=== PATIENT | female | born 1965 | race Hispanic/Latino ===

== ENCOUNTER 2021-04-11 00:42 | Emergency (ER) | payer OTHER ==
--- OUTSIDE RECORDS SUMMARY | 2021-04-11 00:47 | XMS REPORT | Continuity of Care Document ---
:1965 Author Organization [facility] t Address [address] [place] [address] Care Team Providers Name Role Phone Emigdio HERNANDEZ, [facility] Primary Care Physician Payers Payer Name Policy Type Policy Number Effective Date Expiration Date S ource Problems Condition Condition Condition Status Onset Resolution Last Treating Co mments Source Name Details Category Date Date Treatment Clinician Date Gingivitis Gingivitis Disease Active 2011-09 H arris 10-15 Health 00:00: 00 Dental Dental Disease Active Jarquin decay decay 06-15 Health 00:00: 00 Allergies, Adverse Reactions, Alerts Allergy Allergy Status Severity Reaction(s) Onset Inactive Treating Comm ents Source Name Type Date Date Clinician adhesive DA Active [facility] tape 06-03 Clear 00:00: Trtoter [address] [place] [address] Family History Family Member Diagnosis Comments Start Date Stop Date Source Natural sister Cancer Britton Taylor [facility] Social History Social Habit Start Date Stop Date Quantity Comments Source Tobacco use and 2019-02-22 2019-02-22 Never used Britton Blevins [facility] exposure 00:00:00 00:00:00 Alcohol intake 2019-02-22 2019-02-22 Current Britton Taylor [facility] 00:00:00 00:00:00 non-drinker of alcohol (finding) History [facility] Food 2017-08-20 2017-08-20 1 [facility] Worry 00:00:00 00:00:00 History [facility] Food 2017-08-20 2017-08-20 1 [facility] Scarcity 00:00:00 00:00:00 Sex [birth year] [facility] 00:00:00 00:00:00 Smoking Status Start Date Stop Date Source Never smoker [facility] Medications Ordered Filled Start Stop Current Ordering Indication Dosage Frequency Signature Comments Components Source Medication Medication Date Date Medication? Clinician (SIG) Name Name traMADol Yes Pain, 50mg Take 1 Jarquin (ULTRAM) 50 5-04 dental tablet by H ealth mg tablet 00:00: mouth 00 every 6 hours as needed for Pain. hydroxychlo 2016-09 Yes 200mg QD Take 200 H arris roquine 2-11 mg by Health (PLAQUENIL) 13:56: mouth 200 mg 39 daily. tablet hydroxychlo 2016-09 Yes 200mg QD Take 200 H arris roquine 2-11 mg by Health (PLAQUENIL) 13:56: mouth 200 mg 39 daily. tablet topiramate 2016-09 Yes 50mg Q.5D Take 50 mg H arris (TOPAMAX) 2-11 by mouth 2 Heal th 50 mg 13:56: times tablet 39 daily. Diclofenac 2016-09 Yes Apply to Bruno ris Sodium 2-11 affected Health (VOLTAREN) 13:56: area. 1 % Gel 39 Procedures This patient has no known procedures. Plan of Care Planned Activity Planned Date Details Comments Source Future Scheduled 2021-06-20 IMM Influenza Seasonal H arris Health Test 00:00:00 Jun to November (>/= 19 yrs) [code = IMM Influenza Seasonal Jun to November (>/= 19 yrs)] Future Scheduled 2021-04-20 INFLUENZA VACCINE [place] [facility] 00:00:00 [code = INFLUENZA VACCINE] Future Scheduled 2015 COLONOSCOPY SCREENING [place] [facility] 00:00:00 [code = COLONOSCOPY SCREENING] Future Scheduled 2015 SHINGLES VACCINES (#1) [place] [facility] 00:00:00 [code = SHINGLES VACCINES (#1)] Future Scheduled 2015 BREAST CANCER [facility]ist Test 00:00:00 SCREENING [code = BREAST CANCER SCREENING] Future Scheduled 2015 Screening for Jarquin Hea lth Test 00:00:00 malignant neoplasm of colon (procedure) [code = 091724000] Future Scheduled 2005 Breast Cancer Scrn [facility] s Health Test 00:00:00 (Yearly) [code = Breast Cancer Scrn (Yearly)] Future Scheduled 1995 Screening for Jarquin [facility] Test 00:00:00 malignant neoplasm of cervix (procedure) [code = 889129383] Future Scheduled 1995 Screening for Britton Blevinsa lth Test 00:00:00 malignant neoplasm of cervix (procedure) [code = 013919178] Future Scheduled 1986 Screening for [facility] Test 00:00:00 malignant neoplasm of cervix (procedure) [code = 387058202] Future Scheduled 1983 Hepatitis C screening [place] [facility] 00:00:00 (procedure) [code = 094471859] Future Scheduled 1977 COVID-19 VACCINE (1) [facility] 00:00:00 [code = COVID-19 VACCINE (1)] Future Scheduled 1977 COVID-19 Vaccine (1) [facility] Test 00:00:00 [code = COVID-19 Vaccine (1)] Future Scheduled 1975 DIABETES: RETINAL EYE [place] [facility] 00:00:00 EXAM [code = DIABETES: RETINAL EYE EXAM] Future Scheduled 1975 DIABETIC FOOT EXAM [place] [facility] 00:00:00 [code = DIABETIC FOOT EXAM] Future Scheduled 1975 URINE MICROALBUMIN [place] [facility] 00:00:00 [code = URINE MICROALBUMIN] Encounters Start End Encounter Admission Attending Care Care Encounter Source Date/Time Date/Time Type Type Clinicians Facility Department ID 2018-10-10 2018-10-10 Outpatient [facility] [id number] eClinic 16:17:00 16:17:00 Hypertens Hypertensio alWorks ion n [facility] Clinic at at [facility] 2018-10-10 2018-10-10 Outpatient Clear Ashkum [id number] eClinic 16:03:00 16:03:00 [facility] 2018-10-06 2018-10-06 Outpatient Clear [facility] [id number] eClinic 13:04:00 13:04:00 [facility] 2018-10-06 2018-10-06 Outpatient Endocrino Endocrinolo 1 [id number] eClinic 09:02:00 09:02:00 logy gy Clinic alWo rks [facility] 2018-10-06 2018-10-06 Outpatient Clear Ashkum [id number] eClinic 08:00:00 08:00:00 [facility] Primary alWork s Primary Care - Care - [facility] Office Office 2018-07-27 2018-07-27 Outpatient Clear Ashkum [id number] eClinic 08:15:00 08:15:00 [facility] Primary alWork s [facility] 2018-06-30 2018-06-30 Outpatient Clear Ashkum [id number] eClinic 09:28:00 09:28:00 [facility] Primary alWork s Primary Care - Care [facility] Office Office 2018-05-20 2018-05-20 Outpatient [facility] - Clear [id number] eClinic 08:30:00 08:30:00 [facility] alWork s [facility] Clinic 2018-05-09 2018-05-09 Outpatient Clear Ashkum [id number] eClinic 10:45:00 10:45:00 [facility] Primary alWork s [facility] 2018-04-07 2018-04-07 Outpatient Clear Ashkum [id number] eClinic 09:35:00 09:35:00 [facility] Primary alWork s Primary Care - Care - [facility] Office Office 2018-04-04 2018-04-04 Outpatient Clear Ashkum [id number] eClinic 10:15:00 10:15:00 [facility] Primary alWork s Primary Care - Care - [facility] Office Office 2018-03-18 2018-03-18 Outpatient [facility] [id number] Jarquin 10:33:51 10:33:51 Health 2018-02-07 2018-02-07 Outpatient [facility] [id number] [place] 09:37:41 09:37:41 Health 2018-02-07 2018-02-07 Outpatient [facility] [id number] [address] [place] [address] 00:00:00 00:00:00 Health 2018-01-25 2018-01-25 Outpatient Clear Ashkum [id number] eClinic 10:00:00 10:00:00 [facility] Specialties al Works Specialti - Arthritis es - Clinic Arthritis Clinic 2018-01-21 2018-01-21 Outpatient [facility] [id number] [place] 13:12:10 13:12:10 Health 2018-01-19 2018-01-19 Outpatient Clear Ashkum [id number] eClinic 09:28:00 09:28:00 [facility] Primary alWork s Primary Care - Care - [facility] Office Office 2018-01-19 2018-01-19 Outpatient Clear Ashkum [id number] eClinic 08:30:00 08:30:00 [facility] Primary alWork s Primary Care - Care - [facility] Office Office 2018-01-17 2018-01-17 Outpatient Clear Ashkum [id number] eClinic 15:19:00 15:19:00 [facility] Primary alWork s Primary Care - Care - [facility] Office Office 2018-01-17 2018-01-17 Outpatient [facility] [id number] [place] 08:37:47 08:37:47 Health 2018-01-14 2018-01-14 Outpatient Clear Ashkum [id number] eClinic 10:02:00 10:02:00 [facility] Primary alWork s Primary Care - Care - [facility] Office Office 2017-12-23 2017-12-23 Outpatient Kidney Kidney [id number] eClinic 10:30:00 10:30:00 Hypertens Hypertensio alWorks ion n [facility] Clinic 2017-10-26 2017-10-26 Outpatient Clear Ashkum [id number] eClinic 09:15:00 09:15:00 [facility] Primary alWork s Primary Care - Care - [facility] Office Office 2017-10-04 2017-10-04 Outpatient Clear Ashkum [id number] eClinic 08:28:00 08:28:00 [facility] Primary alWork s Primary Care Care 2017-09-30 2017-09-30 Outpatient Kidney Kidney [id number] eClinic 10:30:00 10:30:00 Hypertens Hypertensio alWorks ion n [facility] Clinic 2017-09-28 2017-09-28 Outpatient Clear Ashkum [id number] eClinic 10:25:00 10:25:00 [facility] Specialties al Works Specialti - es - Endocrinolo Endocrino gy [facility] 2017-09-28 2017-09-28 Outpatient Clear Ashkum [id number] eClinic 09:15:00 09:15:00 [facility] Primary alWork s Primary Care Care 2017-09-08 2017-09-08 Outpatient DO NOT DO NOT USE [id number] eClinic 16:44:00 16:44:00 USE - CLS - CLS - Cesario alWorks - Cesario A A 2017-09-07 2017-09-07 Outpatient DO NOT DO NOT USE [id number] eClinic 07:45:00 07:45:00 USE - CLS - CLS - Cesario alWorks - Cesario A A 2017-09-03 2017-09-03 Outpatient Clear Ashkum [id number] eClinic 11:39:00 11:39:00 [facility] Primary alWork s Primary Care Care 2017-08-31 2017-08-31 Outpatient Clear Ashkum [id number] eClinic 11:28:00 11:28:00 [facility] Primary alWork s Primary Care Care 2017-08-30 2017-08-30 Outpatient Clear Ashkum [id number] eClinic 09:00:00 09:00:00 [facility] Primary alWork s Primary Care - Care - [facility] Office Office 2017-07-28 2017-07-28 Outpatient CLS REMOVABLE PROSTHODONTIST CLS REMOVABLE PROSTHODONTIST [id number] eClinic 09:30:00 09:30:00 Clear Ashkum alW orks [facility] Clinic 2017-06-15 2017-06-15 Outpatient DO NOT DO NOT USE [id number] eClinic 09:00:00 09:00:00 USE - CLS - CLS - Cesario alWorks - Cesario C C 2017-05-12 2017-05-12 Outpatient DO NOT DO NOT USE [id number] eClinic 09:15:00 09:15:00 USE - CLS - CLS - Cesario alWorks - Cesario C C 2017-05-10 2017-05-10 Outpatient DO NOT DO NOT USE [id number] eClinic 10:51:00 10:51:00 USE - CLS - CLS - Cesario alWorks - Cesario C C 2017-05-04 2017-05-04 Outpatient DO NOT DO NOT USE [id number] eClinic 15:38:00 15:38:00 USE - CLS - CLS - Cesario alWorks - Cesario C C 2017-03-22 2017-03-22 Outpatient DO NOT DO NOT USE [id number] eClinic 16:00:00 16:00:00 USE - CLS - CLS - Cesario alWorks - Cesario C C 2017-03-12 2017-03-12 Outpatient DO NOT DO NOT USE [id number] eClinic 14:56:00 14:56:00 USE - CLS - CLS - Cesario alWorks - Cesario C C 2017-03-12 2017-03-12 Outpatient DO NOT DO NOT USE [id number] eClinic 10:03:00 10:03:00 USE - CLS - CLS - Cesario alWorks - Cesario C C 2017-03-10 2017-03-10 Outpatient CLS - Cesario CLS - Cesario C 6 [id number] eClinic 09:15:00 09:15:00 C alWork s 2017-03-08 2017-03-08 Outpatient DO NOT DO NOT USE [id number] eClinic 10:30:00 10:30:00 USE - CLS - CLS - Cesario alWorks - Cesario C C 2017-01-26 2017-01-26 Outpatient CLS - Cesario CLS - Cesario C 7 [id number] eClinic 09:00:00 09:00:00 C alWork s 2017-01-25 2017-01-25 Outpatient CLS - Cesario CLS - Cesario C 7 [id number] eClinic 10:01:00 10:01:00 C alWork s 2017-01-25 2017-01-25 Outpatient CLS - Cesario CLS - Cesario A 5 [id number] eClinic 09:30:00 09:30:00 A alWork s 2017-01-21 2017-01-21 Outpatient CLS - Cesario CLS - Cesario C 7 [id number] eClinic 08:33:00 08:33:00 C alWork s 2017-01-15 2017-01-15 Outpatient CLS - Cesario CLS - Cesario A 7 [id number] eClinic 11:37:00 11:37:00 A alWork s 2017-01-05 2017-01-05 Outpatient CLS - Cesario CLS - Cesario C 6 [id number] eClinic 09:00:00 09:00:00 C alWork s 2016-12-24 2016-12-24 Outpatient CLS - Cesario CLS - Cesario C 4 [id number] eClinic 09:30:00 09:30:00 C alWork s 2016-12-15 2016-12-15 Outpatient CLS - Cesario CLS - Cesario C 6 [id number] eClinic 08:00:00 08:00:00 C alWork s 2016-10-16 2016-10-16 Outpatient CLS - Cesario CLS - Cesario C 6 [id number] eClinic 08:07:00 08:07:00 C alWork s 2016-10-08 2016-10-08 Outpatient CLS - Cesario CLS - Cesario A 6 [id number] eClinic 13:58:00 13:58:00 A alWork s 2016-09-17 2016-09-17 Outpatient Clear Ashkum [id number] eClinic 15:03:00 15:03:00 [facility] Special[facility] al Works Specialti es 2016-09-15 2016-09-15 Outpatient Clear Ashkum [id number] eClinic 10:14:00 10:14:00 [facility] Special[facility] al Works Specialti es 2016-09-15 2016-09-15 Outpatient Clear Ashkum [id number] eClinic 08:45:00 08:45:00 [facility] Special[facility] al Works Specialti es 2016-09-09 2016-09-09 Outpatient Clear Ashkum [id number] eClinic 10:45:00 10:45:00 [facility] al Works Specialti es 2016-09-02 2016-09-02 Outpatient Clear Ashkum [id number] eClinic 14:30:00 14:30:00 [facility] Special[facility] al Works Specialti es 2016-08-31 2016-08-31 Outpatient Clear Ashkum [id number] eClinic 10:09:00 10:09:00 [facility] Specialties al Works Specialti es 2016-08-26 2016-08-26 Outpatient Clear Ashkum [id number] eClinic 11:04:00 11:04:00 [facility] Specialties al Works Specialti es 2016-08-26 2016-08-26 Outpatient Clear Ashk[facility] [id number] eClinic 10:30:00 10:30:00 [facility] Special[facility] al Works Specialti es 2016-08-18 2016-08-18 Outpatient Clear Ashk[facility] [id number] eClinic 11:09:00 11:09:00 [facility] Special[facility] al Works Specialti es 2016-07-16 2016-07-16 Outpatient Clear Ashk[facility] [id number] eClinic 13:31:00 13:31:00 [facility] Special[facility] al Works Specialti es 2016-07-10 2016-07-10 Outpatient Clear Ashk[facility] [id number] eClinic 13:57:00 13:57:00 [facility] Special[facility] al Works Specialti es 2016-06-10 2016-06-10 Outpatient Clear [facility] [id number] eClinic 09:00:00 09:00:00 [facility] al Works Specialti es 2016-05-20 2016-05-20 Outpatient Clear [facility] [id number] eClinic 09:15:00 09:15:00 [facility] Special[facility] al Works Specialti es 2016-05-19 2016-05-19 Outpatient Clear Ash[facility] [id number] eClinic 17:37:00 17:37:00 [facility] al Works Specialti es 2016-05-14 2016-05-14 Outpatient Clear Ashk[facility] [id number] eClinic 09:30:00 09:30:00 [facility] al Works Specialti es 2016-04-07 2016-04-07 Outpatient Clear Ashkum [id number] eClinic 08:37:00 08:37:00 [facility] al Works Specialti es 2016-04-02 2016-04-02 Outpatient Clear Ashkum [id number] eClinic 09:30:00 09:30:00 [facility] al Works Specialti es 2016-03-17 2016-03-17 Outpatient Clear Ashk[facility] [id number] eClinic 16:31:00 16:31:00 [facility] al Works Specialti es 2016-03-17 2016-03-17 Outpatient Clear Ashk[facility] [id number] eClinic 15:45:00 15:45:00 [facility] al Works Specialti es 2016-03-09 2016-03-09 Outpatient Clear Ash[place] [id number] eClinic 14:38:00 14:38:00 [facility] Works Specialti es 2016-02-11 2016-02-11 Outpatient Clear [facility] [id number] eClinic 12:03:00 12:03:00 [facility] al Works Specialti es 2016-02-05 2016-02-05 Outpatient Clear [facility] [id number] eClinic 09:30:00 09:30:00 [facility] Special[facility] al Works Specialti es 2016-02-04 2016-02-04 Outpatient Clear Ashk[facility] [id number] eClinic 14:45:00 14:45:00 [facility] Special[facility] al Works Specialti es 2016-01-24 2016-01-24 Outpatient Clear Ashkum [id number] eClinic 12:00:00 12:00:00 [facility] Specialties al Works Specialti es 2016-01-21 2016-01-21 Outpatient Clear Ashkum [id number] eClinic 13:07:00 13:07:00 [facility] Specialties al Works Specialti es 2016-01-17 2016-01-17 Outpatient Clear Ashkum [id number] eClinic 08:54:00 08:54:00 [facility] Specialties al Works Specialti es 2016-01-16 2016-01-16 Outpatient Clear Ashk[facility] [id number] eClinic 10:28:00 10:28:00 [facility] Specialties al Works Specialti es 2016-01-16 2016-01-16 Outpatient Clear Ashkum [id number] eClinic 10:15:00 10:15:00 [facility] Specialties al Works Specialti es 2016-01-15 2016-01-15 Outpatient Clear Ashkum [id number] eClinic 14:08:00 14:08:00 [facility] Specialties al Works Specialti es 2016-01-13 2016-01-13 Outpatient Clear Ashkum [id number] eClinic 14:04:00 14:04:00 [facility] al Works Specialti es 2016-01-13 2016-01-13 Outpatient Clear Ashkum [id number] eClinic 10:32:00 10:32:00 [facility] Works Specialti es 2016-01-08 2016-01-08 Outpatient Clear Ashk[facility] [id number] eClinic 09:31:00 09:31:00 [facility] Works Specialti es 2016-01-03 2016-01-03 Outpatient Clear Ashkum [id number] eClinic 13:54:00 13:54:00 [facility] Special[facility] al Works Specialti es 2016-01-01 2016-01-01 Outpatient Clear Ashkum [id number] eClinic 09:30:00 09:30:00 [facility] Works Specialti es 2015-12-24 2015-12-24 Outpatient Clear Ashkum [id number] eClinic 15:04:00 15:04:00 [facility] Specialties al Works Specialti es 2015-12-23 2015-12-23 Outpatient Clear Ashk[facility] [id number] eClinic 15:32:00 15:32:00 [facility] Special[facility] al Works Specialti es 2015-12-05 2015-12-05 Outpatient Clear Ashk[facility] [id number] eClinic 11:00:00 11:00:00 [facility] Specialties al Works Specialti es 2015-12-03 2015-12-03 Outpatient Clear Ashk[facility] [id number] eClinic 08:04:00 08:04:00 [facility] Specialties al Works Specialti es 2015-11-27 2015-11-27 Outpatient Clear [facility] [id number] eClinic 09:15:00 09:15:00 [facility] Special[facility] al Works Specialti es 2015-11-14 2015-11-14 Outpatient Clear Ashk[facility] [id number] eClinic 09:30:00 09:30:00 [facility] Works Specialti es 2015-11-11 2015-11-11 Outpatient Clear Ashkum [id number] eClinic 08:47:00 08:47:00 [facility] Special[facility] al Works Specialti es 2015-11-06 2015-11-06 Outpatient Clear Ashkum [id number] eClinic 10:58:00 10:58:00 [facility] Specialties al Works Specialti es 2015-11-06 2015-11-06 Outpatient Clear Ashkum [id number] eClinic 09:49:00 09:49:00 [facility] Specialties al Works Specialti es 2015-11-06 2015-11-06 Outpatient Clear Ashk[facility] [id number] eClinic 09:42:00 09:42:00 [facility] al Works Specialti es 2015-11-05 2015-11-05 Outpatient Clear Ashk[facility] [id number] eClinic 16:15:00 16:15:00 [facility] al Works Specialti es 2015-10-29 2015-10-29 Outpatient Clear Ashk[facility] [id number] eClinic 10:30:00 10:30:00 [facility] Works Specialti es 2015-10-29 2015-10-29 Outpatient Clear Ashk[facility] [id number] eClinic 08:19:00 08:19:00 [facility] Works Specialti es 2015-10-14 2015-10-14 Outpatient Clear Ashk[facility] [id number] eClinic 08:42:00 08:42:00 [facility] Works Specialti es 2015-10-07 2015-10-07 Outpatient Clear [facility] [id number] eClinic 09:56:00 09:56:00 [facility] Works Specialti es 2015-10-07 2015-10-07 Outpatient Clear Ashkum [id number] eClinic 09:15:00 09:15:00 [facility] Specialti es Results Test Description Test Time Test Comments Results Result [facility] e Comments - CT CHEST W/O 2020-05-30 Name: CONTRAST 17:22:00 [facility] : 1965 Age/S: 55 / F [address] [place] [address] Unit #: [id number] Loc: HELEN [place] [address] Phys: Erika Pineda MD Acct: [id number] Dis Date: Status: REG CLI PHONE #: [phone] Exam Date: 05/30/2020 1359 FAX #: [phone] Reason: R91.1, SOLITARY PULMONARY NODULE EXAMS: CPT CODE: [id number] CT CHEST W/O CONTRAST 22735 Clinical Indication: Pulmonary nodule. History of breast cancer. Comparison: 05/13/2011. TECHNIQUE: Contiguous axial CT images of the chest were acquired without the administration of IV contrast. Coronal and sagittal reconstructions were obtained. CT imaging performed at this location utilizes radiation dose optimization techniques which include one or more of the following: -Automated exposure control -Adjustment of the mA and/or kV according to patient size -Use of iterative reconstruction technique CT Radiation Dose DLP 173.2 mGy-cm FINDINGS: Similar appearance of right lower lobe subpleural scarring. 6 mm left lower lobe nodule, stable. No consolidation, pleural effusion, or pneumothorax. Heart size normal. Visualized thyroid gland is unremarkable. Central airway is patent. No mediastinal or hilar lymphadenopathy. Partially imaged upper abdomen is unremarkable. Postsurgical changes of right mastectomy. No destructive osseous lesion. IMPRESSION: 1. Stable bilateral lower lobe pulmonary nodules. 2. No acute process in the chest. SL: [id number] at 1722 Reported and signed by: Jeet Lerma M.D. CC: Erika Pineda MD; Alla Beal MD Technologist:Manolo Bennett, RT(R)(CT) CTDI: DLP: Trnscb Date/Time: 05/30/2020 (1722) [email or web address] Orig Print D/T: S: 05/30/2020 (1726) PAGE 1 Signed Report
[2021-04-11] MEDS ORDERED: LIDOCAINE 1% MPF 30 ML VIAL ONE (01:25)
[2021-04-11] MEDS ORDERED: TETANUS & DIPHTHERIA TOX,ADULT 0.5 ML VIAL ONE (01:37)
--- NOTE | 2021-04-11 01:52 | ER ---
Nurse's Notes [facility] Name: Sissy Reddy Age: 56 yrs Sex: Female : 1965 Arrival Date: 04/11/2021 Time: 00:46 Bed 3 Private MD: Diagnosis: Laceration left hand Presentation: 04/11 01:10 Chief complaint: Patient states: cut left hand on a fillet knife, approximate 2-3 cm em laceration noted to the left hand. Coronavirus screen: Client denies travel out of the [place] in the last 14 days. Ebola Screen: Patient negative for fever greater than or equal to 101.5 degrees Fahrenheit, and additional compatible Ebola Virus Disease symptoms Patient denies exposure to infectious person. Patient denies travel to an Ebola-affected area in the 21 days before illness onset. No symptoms or risks identified at this time. Complicating Factors: There are no complicating factors for this patient. Initial Sepsis Screen: Does the patient meet any 2 criteria? No. Patient's initial sepsis screen is negative. Does the patient have a suspected source of infection? Yes: Skin breakdown/wound. Risk Assessment: Do you want to hurt yourself or someone else? Patient reports no desire to harm self or others. Onset of symptoms was April 11, 2021. 01:10 Method Of Arrival: Ambulatory em 01:10 Acuity: DENISE 4 em Triage Assessment: 01:50 Injury Description: Laceration sustained to left hand is 0.5 to 2.5 cm long, was ea sustained less than 30 minutes ago. is bleeding a small amount. Historical: - Allergies: 01:12 No Known Allergies; em - PSHx: 01:12 None; em - Immunization history:: Last tetanus immunization: > 10 years ago. - Social history:: Smoking status: Patient denies any tobacco usage or history of. Screenin:12 Abuse screen: Denies threats or abuse. Nutritional screening: No deficits noted. ea Tuberculosis screening: No symptoms or risk factors identified. Fall Risk None identified. Assessment: 01:52 Reassessment: Patient and/or family updated on plan of care and expected duration. Pain ea level reassessed. Patient is alert, oriented x 3, equal unlabored respirations, skin warm/dry/pink. Discharge instruction given to patient verbalized the understanding of instruction. Pt left ED ambulatory tolerating well. Vital Signs: 01:10 BP 101 / 72; Pulse 87; Resp 16; Temp 97.4; Pulse Ox 99% on R/A; Weight 81.65 kg; Height em 5 ft. 4 in. (162.56 cm); 01:10 Body Mass Index 30.90 (81.65 kg, 162.56 cm) em ED Course: 00:46 Patient arrived in ED. es 01:02 Owen Velazco, RN is Primary Nurse. em 01:03 Rafat Marcano MD is Attending Physician. pkl 01:12 Triage completed. em 01:12 Arm band placed on. em 01:12 Patient has correct armband on for positive identification. Bed in low position. Call ea light in reach. 01:56 No provider procedures requiring assistance completed. IV discontinued, intact, ea bleeding controlled, No redness/swelling at site. Pressure dressing applied. Administered Medications: 01:37 Drug: Tetanus-Diphtheria Toxoid Adult 0.5 ml {Medical Receptionist Medical Assistant: Nouveaux Riche. Exp: em 12/05/2022. Lot #: [id number]. } Route: IM; Site: left deltoid; 01:57 Follow up: Response: No adverse reaction ea 01:49 Drug: Ancef (cefazolin) 1 grams Route: IM; Site: right gluteus; ea 01:57 Follow up: Response: No adverse reaction ea Outcome: 01:51 Discharge ordered by . pkl 01:56 Discharged to home ambulatory, with family. ea 01:56 Condition: stable 01:56 Discharge instructions given to patient, Instructed on discharge instructions, follow up and referral plans. medication usage, Demonstrated understanding of instructions, follow-up care, medications, Prescriptions given X 1. 01:57 Patient left the ED. ea Signatures: Rafat Marcano MD MD pkl Salyer, Edna es Munoz, Edgar, NICKO MAHARAJ em Britt Muller RN RN ea
--- NOTE | 2021-04-11 01:52 | EDPHYS ---
Physician Documentation [facility] Name: Sissy Reddy Age: 56 yrs Sex: Female : 1965 Arrival Date: 04/11/2021 Time: 00:46 Bed 3 Private MD: ED Physician Rafat Marcano HPI: 04/11 01:43 This 56 yrs old Female presents to ER via Ambulatory with complaints of pkl Laceration To Hand. 01:43 The patient or guardian reports a laceration, 2.5 cm(s). The complaints affect the left pkl hand between thumb and index finger. Context: resulted from cut with fillet knife. Onset: The symptoms/episode began/occurred just prior to arrival. Associated signs and symptoms: The patient has no apparent associated signs or symptoms. Historical: - Allergies: 01:12 No Known Allergies; em - PSHx: 01:12 None; em - Immunization history:: Last tetanus immunization: > 10 years ago. - Social history:: Smoking status: Patient denies any tobacco usage or history of. ROS: 01:43 Eyes: Negative for injury, pain, redness, and discharge, ENT: Negative for injury, pkl pain, and discharge, Neck: Negative for injury, pain, and swelling, Cardiovascular: Negative for chest pain, palpitations, and edema, Respiratory: Negative for shortness of breath, cough, wheezing, and pleuritic chest pain, Abdomen/GI: Negative for abdominal pain, nausea, vomiting, diarrhea, and constipation, Back: Negative for injury and pain, : Negative for injury, bleeding, discharge, and swelling, Skin: Negative for injury, rash, and discoloration, Neuro: Negative for headache, weakness, numbness, tingling, and seizure. 01:43 MS/extremity: Positive for laceration, of the left hand between thumb and index finger. Exam: 01:43 Head/Face: Normocephalic, atraumatic. Eyes: Pupils equal round and reactive to light, pkl extra-ocular motions intact. Lids and lashes normal. Conjunctiva and sclera are non-icteric and not injected. Cornea within normal limits. Periorbital areas with no swelling, redness, or edema. ENT: Nares patent. No nasal discharge, no septal abnormalities noted. Tympanic membranes are normal and external auditory canals are clear. Oropharynx with no redness, swelling, or masses, exudates, or evidence of obstruction, uvula midline. Mucous membranes moist. Neck: Trachea midline, no thyromegaly or masses palpated, and no cervical lymphadenopathy. Supple, full range of motion without nuchal rigidity, or vertebral point tenderness. No Meningismus. Chest/axilla: Normal chest wall appearance and motion. Nontender with no deformity. No lesions are appreciated. Cardiovascular: Regular rate and rhythm with a normal S1 and S2. No gallops, murmurs, or rubs. Normal PMI, no JVD. No pulse deficits. Respiratory: Lungs have equal breath sounds bilaterally, clear to auscultation and percussion. No rales, rhonchi or wheezes noted. No increased work of breathing, no retractions or nasal flaring. Abdomen/GI: Soft, non-tender, with normal bowel sounds. No distension or tympany. No guarding or rebound. No evidence of tenderness throughout. Back: No spinal tenderness. No costovertebral tenderness. Full range of motion. Neuro: Awake and alert, GCS 15, oriented to person, place, time, and situation. Cranial nerves II-XII grossly intact. Motor strength 5/5 in all extremities. Sensory grossly intact. Cerebellar exam normal. Normal gait. 01:43 Musculoskeletal/extremity: Extremities: grossly normal except: noted in the left hand beyween thumb and index finger: ROM: intact in all extremities, Sensation intact. Vital Signs: 01:10 BP 101 / 72; Pulse 87; Resp 16; Temp 97.4; Pulse Ox 99% on R/A; Weight 81.65 kg; Height em 5 ft. 4 in. (162.56 cm); 01:10 Body Mass Index 30.90 (81.65 kg, 162.56 cm) em Laceration: 01:43 Wound Repair of 2.5cm ( 1.0in ) subcutaneous laceration to left hand between thumb and pkl index finger. Minimal bleeding noted.. Distal neuro/vascular/tendon intact. Anesthesia: Local anesthetic administered with 5 mls of 1% lidocaine. Wound prep: Extensive cleansing by wv. Skin closed with 3 4-0 Prolene using simple sutures and sterile technique. Dressed with Neosporin, pressure dressing. Patient tolerated well. MDM: 01:03 Patient medically screened. pkl 01:43 Data reviewed: vital signs, nurses notes. pkl Administered Medications: 01:37 Drug: Tetanus-Diphtheria Toxoid Adult 0.5 ml {[employer]: Formula XO. Exp: em 12/05/2022. Lot #: [id number]. } Route: IM; Site: left deltoid; 01:57 Follow up: Response: No adverse reaction ea 01:49 Drug: Ancef (cefazolin) 1 grams Route: IM; Site: right gluteus; ea 01:57 Follow up: Response: No adverse reaction ea Disposition Summary: 04/11/21 01:51 Discharge Ordered Location: Home pkl Problem: new pkl Symptoms: have improved pkl Condition: Stable pkl Diagnosis - Laceration left hand pkl Followup: pkl - With: Private Physician - When: 1 week - Reason: Wound Recheck, Staple/Suture removal, Re-evaluation by your physician Discharge Instructions: - Discharge Summary Sheet pkl Forms: - Medication Reconciliation Form pkl - Thank You Letter pkl - Antibiotic Education pkl - Prescription Opioid Use pkl Prescriptions: - Keflex 750 mg Oral capsule - take 1 capsule by ORAL route 3 times per day; 21 capsule; Refills: 0, Product pkl Selection Permitted Signatures: Rafat Marcano MD MD pkl Owen Velazco, RN RN Britt Joe RN RN marina
[2021-04-11] MEDS ORDERED: CEFAZOLIN SODIUM 1 GM/VIAL ONE (02:07)
[2021-04-11 03:57] VITALS: BP 101/72; TEMP 97.4; O2SAT 99
== END 2021-04-11 01:57 | disposition home or self-care (01) ==
LOC: ER 00:42
PROC: 0JQK0ZZ Repair Left Hand Subcutaneous Tissue and Fascia, Open Approach (ICD-10-PCS; principal; 2021-04-11)
DX: S61.412A Laceration without foreign body of left hand, initial encounter (principal); W26.0XXA Contact with knife, initial encounter; Z23 Encounter for immunization
CPT/HCPCS: 90471; 90714; 96372; 99283; 12001; J0690